=== PATIENT | female | born 1935 | race Hispanic/Latino ===

== ENCOUNTER 2016-10-04 09:37 | Outpatient (CLI) | payer MEDICARE, OTHER ==
--- NOTE | 2016-10-04 12:03 | Magnetic Resonance Report ---
MRI scan of brain: History: equilibrium. Technique: Multiplanar, multisequence images were obtained without contrast injection. Findings: No evidence of restricted diffusion. The ventricles are normal in size and midline in location. Periventricular areas of hyperintensity with subcortical areas of hyperintensity. No associated restricted diffusion. No extra-axial fluid collection. Normal brainstem and cerebellum. Normal sella and parasellar area. Normal sinuses and mastoid air cells. Impression: No acute intracranial abnormality. Small vessel ischemic changes.
--- NOTE | 2016-10-04 13:25 | Magnetic Resonance Report ---
MRA of brain: History: Equilibrium. Findings: The vessels of [place] are well visualized and appear patent. Narrowing of the middle cerebral arteries and the vertebral arteries is probably related to atherosclerotic changes. No distinct areas of stenosis or occlusion. Mild dilatation is noted the intracavernous portion of the right internal carotid artery. No thrombus is identified. Codominant vertebral arteries with normal basilar artery. Impression: Findings as detailed above.
--- NOTE | 2016-10-05 09:39 | XRay Report ---
BILATERAL X-RAY ORBITS: 10/04/16 CLINICAL: Search for metal in the eye. FINDINGS: A metal wire at a lateral right orbital fracture. No other orbital foreign body is identified. No acute fracture. The sinuses are clear. Frontal soft tissue swelling. IMPRESSION: Remote right orbital fracture with a metal wire at the fracture. No other foreign body.
== END 2016-10-04 09:38 | disposition home or self-care (01) ==
LOC: MRI 09:37
PROVIDERS: ATTEND Internal Medicine
DX: S02.81XA Fracture of other specified skull and facial bones, right side, initial encounter for closed fracture (principal); I72.0 Aneurysm of carotid artery; X58.XXXA Exposure to other specified factors, initial encounter; Y93.89 Activity, other specified; Y92.89 Other specified places as the place of occurrence of the external cause; Y99.8 Other external cause status
CPT/HCPCS: 70544; 70551

== ENCOUNTER 2016-10-21 16:28 | Emergency (ER) | payer MEDICARE, OTHER ==
[2016-10-21] MEDS ORDERED: BABY ASPIRIN PO ONE (17:26)
[2016-10-21 18:26] LABS: Basophils % (Auto) 0.8 % (0.0-1.8); Hemoglobin 12.2 gm/dl (10.1-14.3); Mean Corpuscular HGB Conc 33 % (30-34); Mean Corpuscular Hemoglobin 31 pg (28-32); Mean Corpuscular Volume 94 fl (79-97); Platelet Count 252 K/mm3 (140-440); Red Blood Count 3.95 M/mm3 (3.65-5.03); Red Cell Distribution Width 13.8 % (13.2-15.2); White Blood Count 11.4 K/mm3 (4.5-11.0)
[2016-10-21 18:34] LABS: Anion Gap 20 mmol/L; BUN/Creatinine Ratio 34.37; Blood Urea Nitrogen 55 mg/dL (7-17); Calcium 9.4 mg/dL (8.4-10.2); Carbon Dioxide 20 mmol/L (22-30); Glucose 94 mg/dL (65-100); Potassium 4.3 mmol/L (3.6-5.0); Sodium 137 mmol/L (137-145)
[2016-10-21 18:38] LABS: Bilirubin,Urine NEG (Negative); Blood,Urine SM (Negative); Ketones,Urine NEG (Negative); Leukocyte Esterase,Urine NEG (Negative); Mucus,Urine FEW /HPF; Nitrite,Urine NEG (Negative); Protein,Urine <15 mg/dL mg/dL (Negative); Urobilinogen,Urine < 2.0 mg/dL (<2.0)
[2016-10-21 18:39] LABS: INR 1.02 (0.87-1.13); Partial Thromboplastin Time 31.8 Sec. (24.2-36.6)
--- NOTE | 2016-10-21 19:04 | Emergency Department Report ---
HPI - General Chief Complaint: Chest Pain Time Seen by Provider: 10/21/16 17:25 - HPI HPI: Patient brought in by family where the daughter reports multiple hypotensive blood pressure readings at home. Denies CP,dyspnea,f/c/n/v/d. Denies pain. Denies travel. Denies sick contacts. Reports that the automated BP cuff used at home is about 3 years old. Reports the battery was changed in the cuff today. ED Past Medical Hx - Past Medical History Hx Hypertension: Yes Hx Arthritis: Yes Hx COPD: Yes - Social History Smoking Status: Current Every Day Smoker Substance Use Type: None - Medications Home Medications: Home Medications Medication Instructions Recorded Confirmed Last Taken Type Aspirin EC [Aspirin Enteric Coated 81 mg PO QDAY 10/21/16 10/21/16 Unknown History TAB] HYDROcodone/APAP 5-325 [[place] 1 each PO Q8H PRN 10/21/16 10/21/16 Unknown History 5/325] Nebivolol HCl [Bystolic] 10 mg PO QDAY 10/21/16 10/21/16 Unknown History Olmesartan (Nf) [Benicar (Nf)] 40 mg PO QDAY 10/21/16 10/21/16 Unknown History Pantoprazole [Protonix] 40 mg PO QDAY 10/21/16 10/21/16 Unknown History Triamter/Hctz 37.5-25 mg 1 tab PO QDAY 10/21/16 10/21/16 Unknown History [Maxzide-25] ED Review of Systems ROS: Stated complaint: HYPOTENSION,WEAK Other details as noted in HPI Other: GENERAL: No weight change, fatigue, weakness, fever, chills, or night sweats SKIN: No changes in skin or hair, no itching, no rashes, no jaundice HEAD: No trauma, headache, or visual changes EYES: No blurriness, tearing, itching, acute visual loss, conjunctival discoloration, or scleral icterus EARS: No hearing loss, tinnitus, vertigo, or earache NOSE: No rhinorrhea, stuffiness, sneezing, itching, or epistaxis MOUTH: No bleeding gums, hoarseness, sore throat, or swelling CARDIAC: No new murmur, chest pain, palpitations, dyspnea on exertion, orthopnea , PND, or edema RESPIRATORY: No shortness of breath, wheeze, cough, sputum production, hemoptysis, pneumonia, asthma, bronchitis, or emphysema GI: No change in appetite, nausea, vomiting, dysphagia, change in bowel frequency, diarrhea, constipation, bleeding, hematemesis, melena, hematochezia, or abdominal pain URINARY: No frequency, urgency, polyuria, dysuria, hematuria, or incontinence MUSCULOSKELETAL: No muscle weakness, joint stiffness, decrease in range of motion, redness, swelling, tenderness NEUROLOGIC: No loss of sensation, numbness, tingling, tremors, weakness, paralysis, seizures HEMATOLOGIC: No anemia, easy bruising, bleeding, petechiae, or purpura ENDOCRINE: No hot or cold intolerance, sweating, polyuria, polydipsia or, polyphagia no thyroid problems PSYCHIATRIC: No change in mood, no anxiety, no depression Physical Exam - Physical Exam Vital Signs: Vital Signs 10/21/16 10/21/16 10/21/16 16:31 16:46 17:00 Temperature 98 F Pulse Rate 89 88 Respiratory 19 20 Rate Blood Pressure 114/53 113/53 110/55 O2 Sat by Pulse 96 Oximetry 10/21/16 10/21/16 17:30 18:01 Temperature Pulse Rate 93 H Respiratory 23 18 Rate Blood Pressure 100/43 O2 Sat by Pulse 96 Oximetry General: GENERAL: Patient in no acute distress HEAD: Normocephalic, atraumatic EYES: PERRLA, EOM intact, no scleral icterus, no papilledema, no conjunctival hemorrhage, visual bradley and acuity wnl, NOSE: No tenderness, discharge, sinus tenderness MOUTH: No erythema, bleeding, exudate HEART: Regular rate and rhythm, no murmur, S1-S2 are auscultated, pulses are symmetric LUNGS: No wheezing, rales, rhonchi, bilateral breath sounds ABDOMEN: Normal bowel sounds, no tenderness, no rebound, no guarding, no masses , no CVA tenderness MUSCULOSKELETAL: Normal joint range of motion, no redness, no swelling, no tenderness NEUROLOGIC: Alert and Oriented, Cranial nerves intact, normal sensation, normal strength, normal gait, no cerebellar deficit SKIN: Skin is warm and dry, no wounds, no rashes ED Course Vital Signs 10/21/16 10/21/16 10/21/16 16:31 16:46 17:00 Temperature 98 F Pulse Rate 89 88 Respiratory 19 20 Rate Blood Pressure 114/53 113/53 110/55 O2 Sat by Pulse 96 Oximetry 10/21/16 10/21/16 17:30 18:01 Temperature Pulse Rate 93 H Respiratory 23 18 Rate Blood Pressure 100/43 O2 Sat by Pulse 96 Oximetry ED Medical Decision Making - Lab Data Result diagrams: 10/21/16 17:55 10/21/16 17:55 - EKG Data Interpretation: no acute changes - Radiology Data Radiology results: image reviewed - Medical Decision Making Patient comfortable. No episodes of hypotension in the ER. Recommend holding BP medicine and f/u with PCP for re-evaluation. Recommend contacting company about evaluating home BP cuff. Family reports they prefer to buy a new BP cuff and agree to closely monitor patient's BP. Updated with results. Plan discharge with outpatient follow-up. Patient agrees with plan and will return if symptoms worsen. Critical care attestation.: If time is entered above; I have spent that time in minutes in the direct care of this critically ill patient, excluding procedure time. ED Disposition Clinical Impression: Low blood pressure reading Disposition: DISCHARGED TO HOME OR SELFCARE Is pt being admited?: No Condition: Stable Instructions: Hypotension (ED) Referrals: ALISE NOLASCO MD [Primary Care Provider] - 2-3 Days Time of Disposition: 19:00
[2016-10-21 20:08] VITALS: BP 113/54
--- NOTE | 2016-10-22 09:22 | XRay Report ---
PORTABLE CHEST INDICATION: Chest pain. COMPARISON: 08/21/2016 FINDINGS: Portable, frontal chest radiograph demonstrates new horizontal densities in the right mid to lower lung zone, likely atelectasis. Mild biapical scarring/pleural thickening may again be noted. Clear remainder lungs without pleural effusions or CHF. Stable cardiomediastinal silhouette. Mild patient rotation/thoracic levoscoliosis with bony demineralization, left humeral head old deformity and EKG leads again noted. Old right upper rib deformities also unchanged. CONCLUSION: New mild right mid to lower lung atelectasis with various other stable findings, as described. Thank you for the opportunity to participate in this patient's care.
== END 2016-10-21 20:09 | disposition home or self-care (01) ==
LOC: ED 16:28
DX: I95.9 Hypotension, unspecified (principal); M19.90 Unspecified osteoarthritis, unspecified site; J44.9 Chronic obstructive pulmonary disease, unspecified; I10 Essential (primary) hypertension; F17.200 Nicotine dependence, unspecified, uncomplicated; Z79.82 Long term (current) use of aspirin
CPT/HCPCS: 36415; 71010; 80048; 81001; 83880; 84484; 85025; 85610; 85730; 93005; 93010